=== PATIENT | female | born 1960 | race African-American/Black ===

== ENCOUNTER 2019-11-18 18:48 | Emergency (ER) | payer BC ==
[~2019-11-18] VITALS: Ht 165.1 cm; Wt 111.1 kg
== END 2019-11-18 23:58 | disposition home or self-care (01) ==
LOC: ER 18:48
DX: K52.9 Noninfective gastroenteritis and colitis, unspecified (principal); B34.9 Viral infection, unspecified; E86.0 Dehydration

== ENCOUNTER 2019-12-01 15:31 | Outpatient (CLI) | payer BC | END 2019-12-01 15:42 | disposition home or self-care (01) | LOC: LAB 15:31 | DX: J11.1 Influenza due to unidentified influenza virus with other respiratory manifestations (principal); R05 Cough ==